=== PATIENT | male | born 1970 | race American Indian/Alaskan Native ===

== ENCOUNTER 2020-06-18 08:46 | Outpatient (CLI) | payer OTHER ==
--- NOTE | 2020-06-18 12:39 | Ultrasound Report ---
ULTRASOUND SOFT TISSUE LIMITED, HEAD AND NECK INDICATION / CLINICAL INFORMATION: CYST ON HEAD. COMPARISON: None available. Technique: Grayscale and color flow images were obtained of the superficial soft tissues atop the hea d. FINDINGS: There is a focal superficial soft tissue lesion measuring 3.7 x 0.6 cm adjacent to the outer cortex o f the skull. Linear internal stripes are noted without significant significant internal color flow or calcification. No local aggressive features or invasion. FREE FLUID: None. ADDITIONAL FINDINGS: None. IMPRESSION: 1. Focal soft tissue lesion of the scalp likely represents an encapsulated lipoma. No evidence of agg ressive features. Signer Name: Stevan Mock MD Signed: 06/18/2020 12:35 PM Workstation Name: [id number]
== END 2020-06-18 08:47 | disposition home or self-care (01) ==
LOC: US 08:46
PROVIDERS: ATTEND Internal Medicine
DX: E04.1 Nontoxic single thyroid nodule (principal)
CPT/HCPCS: 76536